=== PATIENT | male | born 1985 | race Caucasian/White ===

== ENCOUNTER 2021-07-17 13:13 | Inpatient (IN) | payer BC ==
[2021-07-17] MEDS ORDERED: Acetaminophen 325 MG TAB PO PRN (16:47)
[2021-07-17] MEDS: Lactated Ringer's 1,000 ML IV SCH (18:04)
[2021-07-17] MEDS: Pantoprazole 80 MG in Sodium Chloride 0.9% 100 ML IVPB SCH (18:04)
[2021-07-17 18:55] LABS: Hemoglobin 10.2 g/dL (14.0-18.0)
[2021-07-17 18:59] VITALS: BMI 34.1
[2021-07-17] MEDS: Ondansetron ODT 4 MG TAB PO PRN (23:18)
[2021-07-18 01:18] LABS: Hemoglobin 8.5 g/dL (14.0-18.0)
[2021-07-18] MEDS: Lactated Ringer's 1,000 ML IV SCH ×3 (02:52→23:24)
[2021-07-18 04:03] LABS: Hemoglobin 8.8 g/dL (14.0-18.0)
[2021-07-18] MEDS: Pantoprazole 80 MG in Sodium Chloride 0.9% 100 ML IVPB SCH (04:26)
[2021-07-18 05:38] LABS: Hemoglobin 8.7 g/dL (14.0-18.0)
[2021-07-18] MEDS ORDERED: FLU VACC QS2021-22(6MOS UP)/PF 60 MCG/0.5 ML SYRINGE IM ONE (09:00)
[2021-07-18] MEDS ORDERED: Lidocaine 1% PF 5 ML VIAL ONE (10:24)
[2021-07-18] MEDS ORDERED: PROPOFOL 200 MG/20 ML VIAL ONE (10:24)
[2021-07-18] MEDS ORDERED: GoLYTELY 4,000 ml Bottle PO SCH (12:00)
[2021-07-18] MEDS ORDERED: Albuterol Sulfate 1.25 MG/3 ML NEB ONE (13:13)
[2021-07-18] MEDS: Ondansetron ODT 4 MG TAB PO PRN (13:30)
[2021-07-18] MEDS: Octreotide Acetate 1,250 MCG in Sodium Chloride 0.9% 250 ML 250 ML IVPB SCH (18:27)
[2021-07-19 05:19] LABS: Hemoglobin 6.6 g/dL (14.0-18.0)
[2021-07-19] MEDS ORDERED: PROPOFOL 200 MG/20 ML VIAL ONE (09:05)
[2021-07-19] MEDS ORDERED: Lidocaine 1% PF 5 ML VIAL ONE (09:05)
[2021-07-19] MEDS ORDERED: Ondansetron HCl/PF 4 MG/2 ML Vial IVP PRN (09:20)
[2021-07-19] MEDS ORDERED: Promethazine HCl 25 MG/ML VIAL IM PRN (09:20)
[2021-07-19] MEDS ORDERED: Promethazine HCl 25 MG/ML VIAL IVPB PRN (09:20)
[2021-07-19] MEDS: Lactated Ringer's 1,000 ML IV SCH ×2 (10:00→18:14)
[2021-07-19] MEDS: Octreotide Acetate 1,250 MCG in Sodium Chloride 0.9% 250 ML 250 ML IVPB SCH (23:35)
[2021-07-20] MEDS: Lactated Ringer's 1,000 ML IV SCH ×2 (04:50→17:10)
[2021-07-20 05:23] LABS: Hemoglobin 6.8 g/dL (14.0-18.0)
[2021-07-21] MEDS: Octreotide Acetate 1,250 MCG in Sodium Chloride 0.9% 250 ML 250 ML IVPB SCH (02:53)
[2021-07-21] MEDS: Lactated Ringer's 1,000 ML IV SCH (02:53)
[2021-07-21 06:13] LABS: Hemoglobin 7.5 g/dL (14.0-18.0)
[2021-07-21 11:59] VITALS: BP 131/80; TEMP 97.8
== END 2021-07-21 12:06 | disposition home or self-care (01) | DRG 441 ==
LOC: 2NO 13:13 → OBSVTOIN 07-18 15:05
PROVIDERS: ADMIT Internal Medicine; ATTEND Family Medicine
PROC: 06L38CZ Occlusion of Esophageal Vein with Extraluminal Device, Via Natural or Artificial Opening Endoscopic (ICD-10-PCS; principal; 2021-07-18)
PROC: 0DBK8ZZ Excision of Ascending Colon, Via Natural or Artificial Opening Endoscopic (ICD-10-PCS; 2021-07-19)
PROC: 0DBH8ZZ Excision of Cecum, Via Natural or Artificial Opening Endoscopic (ICD-10-PCS; 2021-07-19)
PROC: 0DBL8ZZ Excision of Transverse Colon, Via Natural or Artificial Opening Endoscopic (ICD-10-PCS; 2021-07-19)
PROC: 0DJ08ZZ Inspection of Upper Intestinal Tract, Via Natural or Artificial Opening Endoscopic (ICD-10-PCS; 2021-07-19)
PROC: 30233N1 Transfusion of Nonautologous Red Blood Cells into Peripheral Vein, Percutaneous Approach (ICD-10-PCS; 2021-07-19)
DX: K76.6 Portal hypertension (principal); I85.11 Secondary esophageal varices with bleeding; D62 Acute posthemorrhagic anemia; K25.9 Gastric ulcer, unspecified as acute or chronic, without hemorrhage or perforation; K63.5 Polyp of colon; K31.89 Other diseases of stomach and duodenum; L40.9 Psoriasis, unspecified; Z88.1 Allergy status to other antibiotic agents; Z82.49 Family history of ischemic heart disease and other diseases of the circulatory system; Z79.899 Other long term (current) drug therapy
CPT/HCPCS: 36415; 36430; 76705; 80053; 82274; 85014; 85018; 85025; 85610; 85730; 86850; 86900; 86901; 88305; 88342; 96374; 96376; C9113; G0378; J2354; J2405; J2704; J3490; J7042; J7050; J7120; P9016; Q0162; U0002